=== PATIENT | female | born 1975 | race Caucasian/White ===

== ENCOUNTER → 2016-05-18 | Outpatient (CLI) | payer BC ==
--- NOTE | 2016-05-20 09:45 | MM ---
Reason for exam: screening (asymptomatic). Last mammogram was performed 4 years and 7 months ago. History: Family history of breast cancer in mother at age 60. Physical Findings: A clinical breast exam by your physician is recommended on an annual basis and results should be correlated with mammographic findings. MG Screening Mammo w CAD Bilateral CC and MLO view(s) were taken. Prior study comparison: October 01, 2011, bilateral digital screening mammo w/CAD. The breast tissue is heterogeneously dense. This may lower the sensitivity of mammography. Partially obscured nodular density upper outer right breast. ASSESSMENT: Incomplete: need additional imaging evaluation, BI-RAD 0 RECOMMENDATION: Special view mammogram and ultrasound of the right breast. [facility] will attempt to contact patient to return for supplemental views and ultrasound.
== END | disposition home or self-care (01) ==
LOC: RADMAMWWP 11:23
PROVIDERS: ATTEND Obstetrics & Gynecology
DX: Z12.31 Encounter for screening mammogram for malignant neoplasm of breast (principal)

== ENCOUNTER → 2016-05-29 | Outpatient (CLI) | payer BC ==
--- NOTE | 2016-05-29 13:02 | MM ---
Reason for exam: additional evaluation requested from abnormal screening. Last mammogram was performed less than 1 month ago. History: Family history of breast cancer in mother at age 60. Physical Findings: Nurse Summary: 1cm nodule in the right breast at 11 o'clock (nurse kp). MG Work Up Mamm w CAD RT ML, spot compression CC, and spot compression MLO view(s) were taken of the right breast. Prior study comparison: May 18, 2016, bilateral MG screening mammo w CAD. October 01, 2011, bilateral digital screening mammo w/CAD. The breast tissue is heterogeneously dense. This may lower the sensitivity of mammography. Asymmetric breast tissue in the right breast does not completely go away. ASSESSMENT: Incomplete: need additional imaging evaluation, BI-RAD 0 RECOMMENDATION: Ultrasound of the right breast.
--- NOTE | 2016-05-29 13:04 | USB ---
Reason for exam: additional evaluation requested from abnormal screening. History: Family history of breast cancer in mother at age 60. US Breast Workup Limited RT Left breast ultrasound demonstrates a 0.5 x 0.6 x 0.5cm irregular, solid lesion at 11 o'clock. These results were verbally communicated with the patient and result sheet given to the patient on 05/29/16. ASSESSMENT: Suspicious, BI-RAD 4 RECOMMENDATION: Ultrasound core biopsy of the right breast. Called Dr. Krishnan with mammographic findings and has scheduled an appointment for the patient for 06/04/16 at 2:[address] Carrillo. Biopsy scheduled for 05/31/16 at 11:30. PRELIMINARY REPORT CALLED AND FAXED TO DR. CARRILLO ON 05/29/16 AT 300/TP.
== END | disposition home or self-care (01) ==
LOC: RADMAMWWP 07:26
PROVIDERS: ATTEND Obstetrics & Gynecology
DX: R92.8 Other abnormal and inconclusive findings on diagnostic imaging of breast (principal)
CPT/HCPCS: 76642; G0206

== ENCOUNTER → 2016-05-31 | Day surgery (SDC) | payer BC ==
[~2016-05-31] MED LIST: ALPRAZolam 0.25 MG TAB ONE; BACITRACIN OINT 1 EACH PACKET TOPICAL ONE; LIDOCAINE 1% INJ 10MG/ML (20 ML MDV) ONE; LIDOCAINE 1%-EPI 1:100,000 20 ML VIAL ONE; SODIUM BICARB 4% 5 ML VIAL (0.48 MEQ/ML) ONE
--- NOTE | 2016-05-31 12:50 | USB ---
EXAMINATION TYPE: US biopsy breast VAD RT, MG diagnostic mammo RT wo CAD DATE OF EXAM: 05/31/2016 11:58 AM CLINICAL HISTORY: R92.8 ABN MAMMO and ultrasound. TECHNIQUE: Ultrasound guided core biopsy of right breast with clip placement and follow-up two-view mammogram. COMPARISON: Right breast mammogram and ultrasound May 29, 2016 and older exams. FINDINGS: The procedure of ultrasound guided core biopsy was explained to the patient. Benefits, alternatives, and risks were discussed. An informed consent was then obtained. The patient was placed in supine positioning for imaging and for the procedure. Preprocedure imaging redemonstrates vague fairly isoechoic lobulated area 11:00 position in the right breast without distinct shadowing on current study slightly less prominent or suspicious during real-time scanning. The overlying skin was prepped and draped in usual sterile fashion. Lidocaine buffered with bicarbonate was used as anesthetic into the skin and subcutaneous tissue. Lidocaine with epinephrine is used as anesthetic into the deeper tissue up to area of concern in the right breast. Under ultrasound guidance, a 13-gauge vacuum assisted biopsy gun device was used to obtain 4 core samples. Following this, a biopsy clip was left in lesion. The patient tolerated the procedure well without any immediate complication. The patient was kept in the radiology department for short stay after the procedure and then discharged home in stable condition. Postprocedure mammogram shows successful deployment of clip. No suspicious mammogram lesion is clearly identified. IMPRESSION: Successful, uncomplicated ultrasound guided core biopsy of area of concern in the right breast, full pathology results to follow. Low to intermediate index of suspicion noted at time of procedure. Pathology Results: Benign BREAST, RIGHT, CORE BIOPSY: BENIGN FIBROADIPOSE TISSUE. SEE NOTE. Recommendation Follow up ultrasound of the right breast in 2-3 months. [facility]
== END | disposition home or self-care (01) ==
LOC: RADUSWWP 10:17
PROVIDERS: ATTEND Surgery
DX: R92.8 Other abnormal and inconclusive findings on diagnostic imaging of breast (principal); Z88.2 Allergy status to sulfonamides; Z88.0 Allergy status to penicillin; Z88.1 Allergy status to other antibiotic agents
CPT/HCPCS: 88305; 19083; G0206; A4648; J2001

== ENCOUNTER → 2016-08-02 | Outpatient (CLI) | payer BC ==
--- NOTE | 2016-08-02 09:26 | USB ---
Reason for exam: clinical finding. History: Family history of breast cancer in mother at age 60. Benign US biopsy breast VAD RT of the right breast, May 31, 2016. Indicated problem(s): palpable abnormality in the right breast. Physical Findings: Nurse did not find any significant physical abnormalities on exam. US Breast RT Right breast ultrasound includes all four quadrants, the retroareolar region and axilla. Finding demonstrates a 0.6 x 0.6 x 0.3cm solid, hypoechoic lesion at 11 o'clock versus 6 x 5 x 5mm previously. The lesion persists and has not significantly changed. These results were verbally communicated with the patient and result sheet given to the patient on 08/02/16. ASSESSMENT: Suspicious, BI-RAD 4 RECOMMENDATION: Surgical consultation of the right breast. Decision can be made to rebiopsy under ultrasound guidance versus proceed to ultrasound wire localization and excision. Called with ultrasound findings and has scheduled an appointment for the patient for 08/13/16 at 3:[address] Carrillo. PRELIMINARY REPORT CALLED AND FAXED TO DR. CARRILLO ON 08/02/16 AT 300/TP.
== END | disposition home or self-care (01) ==
LOC: RADUSWWP 06:59
PROVIDERS: ATTEND Surgery
DX: R92.8 Other abnormal and inconclusive findings on diagnostic imaging of breast (principal)

== ENCOUNTER → 2016-08-22 | Day surgery (SDC) | payer BC ==
[~2016-08-22] MED LIST changes: -ALPRAZolam 0.25 MG TAB ONE; -BACITRACIN OINT 1 EACH PACKET TOPICAL ONE; -LIDOCAINE 1%-EPI 1:100,000 20 ML VIAL ONE; -SODIUM BICARB 4% 5 ML VIAL (0.48 MEQ/ML) ONE
--- NOTE | 2016-08-22 14:21 | USB ---
Discontinued ultrasound guided core biopsy of the right breast HISTORY: Abnormal breast ultrasound Real-time ultrasound performed. Following discussion with the patient about alternatives, she has ethan cted to abort the ultrasound-guided core biopsy of this time. She decides to discuss case with Dr. Alec means prior to biopsy. Biopsy is aborted per patient request
== END ==
LOC: RADUSWWP 11:38
PROVIDERS: ATTEND Surgery
DX: R92.8 Other abnormal and inconclusive findings on diagnostic imaging of breast (principal)
CPT/HCPCS: 76641; J2001

== ENCOUNTER → 2016-09-30 | Day surgery (SDC) | payer BC ==
[2016-09-30 07:39] VITALS: PULSE 77; RESP 16; BMI 26.6
[2016-09-30 08:33] VITALS: BP 113/76; TEMP 98.5
--- NOTE | 2016-09-30 09:02 | USB ---
EXAMINATION TYPE: US biopsy breast VAD RT, MG diagnostic mammo RT wo CAD DATE OF EXAM: 09/30/2016 CLINICAL HISTORY: R92.8 ABN MAMMO. Abnormal ultrasound. TECHNIQUE: Ultrasound guided core biopsy of right breast with clip placement and follow-up two-view mammogram. COMPARISON: Prior right breast ultrasound exams from August 22, 2016 through May 29, 2016 FINDINGS: The procedure of ultrasound guided core biopsy was explained to the patient. Benefits, alternatives, and risks were discussed. An informed consent was then obtained. The patient was placed in supine positioning for imaging and for the procedure. Preprocedure imaging redemonstrates round isoechoic 7 mm area at 11: 00 position right breast. The overlying skin was prepped and draped in usual sterile fashion. Lidocaine was used as anesthetic into the skin and subcutaneous tissue up to area of concern in the right breast. Under ultrasound guidance, a 12-gauge vacuum assisted biopsy gun device was used to obtain 3 core samples. Following this, a biopsy clip was left in lesion. The patient tolerated the procedure well without any immediate complication. The patient was kept in the radiology department for short stay after the procedure and then discharged home in stable condition. Postprocedure mammogram shows successful deployment of clip. Clip is approximately 3 cm lateral to first clip further from 12:00 position and site of prior clip likely closer to the targeted 10- 11:00 position. I would using medial to lateral approach and perhaps what I thought was tip was actually distal part of clip insertion device and tip was farther lateral accounting for slight displacement of clips. IMPRESSION: Successful, uncomplicated ultrasound guided core biopsy of area of concern in the right breast, full pathology results to follow. Low index of suspicion noted at time of procedure. Still favor benign lobule as area of concern is isoechoic to surrounding tissue. Pathology Results: Benign BREAST, RIGHT SITE A AT 11:00, BIOPSY: MATURE BENIGN VASCULARIZED FIBROADIPOSE TISSUE; BREAST ELEMENTS ARE NOT IDENTIFIED. RECOMMEND CLINICAL AND IMAGING CORRELATION AND FOLLOW UP INDICATED. Recommendation Follow up mammogram and ultrasound of the right breast in 6 months. [facility]
== END ==
LOC: RADUSWWP 07:18
PROVIDERS: ATTEND Surgery
DX: R92.8 Other abnormal and inconclusive findings on diagnostic imaging of breast (principal); Z88.0 Allergy status to penicillin; Z88.2 Allergy status to sulfonamides
CPT/HCPCS: 88305; 19083; G0206; A4648; J2001

== ENCOUNTER → 2017-04-08 | Outpatient (CLI) | payer BC ==
--- NOTE | 2017-04-08 09:37 | USB ---
Reason for exam: follow-up at short interval from prior study. History: Family history of breast cancer in mother at age 60. Benign US biopsy breast VAD RT of the right breast, September 30, 2016. US discontinued breast core RT of the right breast, August 22, 2016. Benign US biopsy breast VAD RT of the right breast, May 31, 2016. Physical Findings: Nurse did not find any significant physical abnormalities on exam. US Breast RT Right breast ultrasound includes all four quadrants, the retroareolar region and axilla. Finding demonstrates this measures 7 x 3mm and is unchanged. 6 month follow up can demonstrate further stability. These results were verbally communicated with the patient and result sheet given to the patient on 04/08/17. ASSESSMENT: Probably benign, BI-RAD 3 RECOMMENDATION: Follow-up diagnostic mammogram of both breasts in 6 months. Back on schedule. Ultrasound of the right breast in 6 months.
== END | disposition home or self-care (01) ==
LOC: RADUSWWP 08:01
PROVIDERS: ATTEND Surgery
DX: R92.8 Other abnormal and inconclusive findings on diagnostic imaging of breast (principal)

== ENCOUNTER → 2017-12-26 | Outpatient (CLI) | payer BC ==
--- NOTE | 2017-12-26 11:27 | MM ---
Reason for exam: additional evaluation requested from prior study. Last mammogram was performed 1 year and 3 months ago. History: Family history of breast cancer in mother at age 60. Benign US biopsy breast VAD RT of the right breast, September 30, 2016. US discontinued breast core RT of the right breast, August 22, 2016. Benign US biopsy breast VAD RT of the right breast, May 31, 2016. Physical Findings: Nurse did not find any significant physical abnormalities on exam. MG Diagnostic Mammo w CAD [place] Bilateral CC and MLO view(s) were taken. Prior study comparison: September 30, 2016, right breast MG diagnostic mammo RT wo CAD. May 31, 2016, right breast MG diagnostic mammo RT wo CAD. The breast tissue is heterogeneously dense. This may lower the sensitivity of mammography. Previous mammotome biopsy in the right breast. No significant new findings when compared with previous films. These results were verbally communicated with the patient and result sheet given to the patient on 12/26/17. ASSESSMENT: Benign, BI-RAD 2 RECOMMENDATION: Routine screening mammogram of both breasts in 1 year.
--- NOTE | 2017-12-26 11:28 | USB ---
Reason for exam: follow-up at short interval from prior study. History: Family history of breast cancer in mother at age 60. Benign US biopsy breast VAD RT of the right breast, September 30, 2016. US discontinued breast core RT of the right breast, August 22, 2016. Benign US biopsy breast VAD RT of the right breast, May 31, 2016. US Breast RT Right complete breast ultrasound includes all four quadrants, the retroareolar region and axilla. Finding demonstrates no cystic or solid lesion seen. These results were verbally communicated with the patient and result sheet given to the patient on 12/26/17. ASSESSMENT: Benign, BI-RAD 2 RECOMMENDATION: Routine screening mammogram of both breasts in 1 year.
== END ==
LOC: RADMAMWWP 06:57
PROVIDERS: ATTEND Obstetrics & Gynecology
DX: R92.8 Other abnormal and inconclusive findings on diagnostic imaging of breast (principal)
CPT/HCPCS: 77066

== ENCOUNTER → 2019-04-05 | Outpatient (CLI) | payer BC ==
--- NOTE | 2019-04-09 09:50 | MM ---
Reason for exam: screening (asymptomatic). Last mammogram was performed 1 year and 3 months ago. History: Family history of breast cancer in mother at age 60. Benign US biopsy breast VAD RT of the right breast, September 30, 2016. US discontinued breast core RT of the right breast, August 22, 2016. Benign US biopsy breast VAD RT of the right breast, May 31, 2016. Physical Findings: A clinical breast exam by your physician is recommended on an annual basis and results should be correlated with mammographic findings. MG Screening Mammo w CAD Bilateral CC and MLO view(s) were taken. Prior study comparison: December 26, 2017, bilateral MG diagnostic mammo w CAD [place]. September 30, 2016, right breast MG diagnostic mammo RT wo CAD. The breast tissue is heterogeneously dense. This may lower the sensitivity of mammography. Previous mammotome biopsy in the right breast x 2. No significant changes when compared with prior studies. ASSESSMENT: Benign, BI-RAD 2 RECOMMENDATION: Routine screening mammogram of both breasts in 1 year.
== END | disposition home or self-care (01) ==
LOC: RADMAMWWP 06:48
PROVIDERS: ATTEND Obstetrics & Gynecology
DX: Z12.31 Encounter for screening mammogram for malignant neoplasm of breast (principal)
CPT/HCPCS: 77067

== ENCOUNTER → 2020-08-09 | Outpatient (CLI) | payer BC ==
--- NOTE | 2020-08-10 13:22 | MM ---
Reason for exam: screening (asymptomatic). Last mammogram was performed 1 year and 4 months ago. History: Family history of breast cancer in mother at age 60. Benign US biopsy breast VAD RT of the right breast, September 30, 2016. US discontinued breast core RT of the right breast, August 22, 2016. Benign US biopsy breast VAD RT of the right breast, May 31, 2016. Physical Findings: A clinical breast exam by your physician is recommended on an annual basis and results should be correlated with mammographic findings. MG Screening Mammo w CAD Bilateral CC and MLO view(s) were taken. Prior study comparison: April 05, 2019, bilateral MG screening mammo w CAD. December 26, 2017, bilateral MG diagnostic mammo w CAD [place]. The breast tissue is heterogeneously dense. This may lower the sensitivity of mammography. Previous mammotome biopsy in the right breast x 2. There is no discrete abnormality. ASSESSMENT: Benign, BI-RAD 2 RECOMMENDATION: Routine screening mammogram of both breasts in 1 year.
== END | disposition home or self-care (01) ==
LOC: RADMAMWWP 06:59
PROVIDERS: ATTEND Obstetrics & Gynecology
DX: Z12.31 Encounter for screening mammogram for malignant neoplasm of breast (principal)
CPT/HCPCS: 77067

== ENCOUNTER → 2021-12-07 | Outpatient (CLI) | payer BC ==
--- NOTE | 2021-12-10 08:43 | MM ---
Reason for Exam: Screening (asymptomatic). Last mammogram was performed 1 year(s) and 4 month(s) ago. Patient History: Menarche at age 14. First Full-Term at age 29. 09/30/2016, Benign Core Biopsy on the right side. 05/31/2016, Benign Core Biopsy on the right side. 08/22/2016, US discontinued breast core RT on the right side. Mother had breast cancer, age 60. Last menstrual period: 12/07/2021 Risk Values: Nevaeh 5 year model risk: 4.3%. NCI Lifetime model risk: 27.1%. Prior Study Comparison: 12/26/2017 Bilateral Diagnostic Mammogram, [facility]. 04/05/2019 Bilateral Screening Mammogram, [facility]. 08/09/2020 Bilateral Screening Mammogram, [facility]. Tissue Density: The breast tissue is heterogeneously dense. This may lower the sensitivity of mammography. Findings: Analyzed By CAD. There is no suspicious group of microcalcifications or new suspicious mass in either breast. Overall Assessment: Benign, BI-RAD 2 Management: Screening Mammogram of both breasts in 1 year. A clinical breast exam by your physician is recommended on an annual basis and results should be correlated with mammographic findings. Electronically signed and approved by: Aditya Abbott M.D. Radiologis
== END | disposition home or self-care (01) ==
LOC: RADMAMWWP 16:13
PROVIDERS: ATTEND Obstetrics & Gynecology
DX: Z12.31 Encounter for screening mammogram for malignant neoplasm of breast (principal); Z80.3 Family history of malignant neoplasm of breast
CPT/HCPCS: 77067

== ENCOUNTER → 2023-04-11 | Outpatient (CLI) | payer BC ==
--- NOTE | 2023-04-14 13:25 | MM ---
Reason for Exam: Screening (asymptomatic). Last mammogram was performed 1 year(s) and 4 month(s) ago. Patient History: Menarche at age 14. First Full-Term at age 29. 09/30/2016, Benign Core Biopsy on the right side. 05/31/2016, Benign Core Biopsy on the right side. 08/22/2016, US discontinued breast core RT on the right side. Mother had breast cancer, age 60. Last menstrual period: 03/26/2023 Risk Values: Nevaeh 5 year model risk: 4.0%. NCI Lifetime model risk: 26.5%. Prior Study Comparison: 04/05/2019 Bilateral Screening Mammogram, [facility]. 08/09/2020 Bilateral Screening Mammogram, [facility]. 12/07/2021 Bilateral MG screening mammo w CAD, [facility]. Tissue Density: There are scattered fibroglandular densities. Findings: Analyzed By CAD. 2 microclips in the right breast from prior biopsies. There is asymmetric density outer aspect of the left breast annual depth on the CC view which appears more defined. This may represent superimposition shadow but further evaluation is recommended. Otherwise, no significant change. Overall Assessment: Incomplete: need additional imaging evaluation, BI-RAD 0 Management: Special View Mammogram of the left breast. Diagnostic Breast Ultrasound of the left breast. Additional views to include spot 3-D CC, 3-D CC rolled medial, spot 3-D MLO, and 3-D ML views. Targeted left breast ultrasound of any persisting abnormality. [facility] will attempt to contact patient to return for supplemental views and ultrasound if indicated. Electronically signed and approved by: Ben Purcell M.D. Radiologist
== END | disposition home or self-care (01) ==
LOC: RADMAMWWP 15:03
PROVIDERS: ATTEND Obstetrics & Gynecology
DX: Z12.31 Encounter for screening mammogram for malignant neoplasm of breast (principal); Z80.3 Family history of malignant neoplasm of breast
CPT/HCPCS: 77067

== ENCOUNTER → 2023-04-23 | Outpatient (CLI) | payer BC ==
--- NOTE | 2023-04-23 10:27 | MM ---
Reason for Exam: Additional evaluation requested from abnormal screening. Last screening mammogram was performed less than 1 month ago. Patient History: Menarche at age 14. First Full-Term at age 29. 09/30/2016, Benign Core Biopsy on the right side. 05/31/2016, Benign Core Biopsy on the right side. 08/22/2016, US discontinued breast core RT on the right side. Mother had breast cancer, age 60. Risk Values: Nevaeh 5 year model risk: 3.7%. NCI Lifetime model risk: 25.9%. Prior Study Comparison: 08/09/2020 Bilateral Screening Mammogram, [facility]. 12/07/2021 Bilateral MG screening mammo w CAD, [facility]. 04/11/2023 Bilateral MG screening mammo w CAD, [facility]. Tissue Density: Left: There are scattered fibroglandular densities. Findings: Analyzed By CAD. Under compression no persistent suspicious nodularity is identified. No suspicious underlying spiculated or lobular masses evident. No distortion is evident. Overall Assessment: Probably benign, BI-RAD 3 Management: Diagnostic Mammogram of the left breast in 6 months. A negative mammogram report should not preclude additional follow up of suspicious palpable abnormalities. Patient should continue monthly self breast exam. A clinical breast exam by your physician is recommended on an annual basis and results should be correlated with mammographic findings. Electronically signed and approved by: Oren Clement D.O. Radiologis
== END | disposition home or self-care (01) ==
LOC: RADMAMWWP 09:52
PROVIDERS: ATTEND Obstetrics & Gynecology
DX: R92.322 Mammographic fibroglandular density, left breast (principal); Z80.3 Family history of malignant neoplasm of breast
CPT/HCPCS: 77061; 77065

== ENCOUNTER → 2024-09-29 | Outpatient (CLI) | payer BC ==
--- NOTE | 2024-09-29 07:29 | MM ---
Reason for Exam: Screening (asymptomatic). Last mammogram was performed 1 year(s) and 6 month(s) ago. Patient History: Menarche at age 14. First Full-Term at age 29. Premenopausal. 09/30/2016, Benign Core Biopsy on the right side. 05/31/2016, Benign Core Biopsy on the right side. 08/22/2016, US discontinued breast core RT on the right side. Mother had breast cancer, age 60. Last menstrual period: 09/12/2024 Risk Values: Wilian 5 year model risk: 3.4%. NCI Lifetime model risk: 25.3%. Prior Study Comparison: 12/07/2021 Bilateral MG screening mammo w CAD, [facility]. 04/11/2023 Bilateral MG screening mammo w CAD, [facility]. 04/23/2023 Left MG 3D work up w/cad LT, [facility]. Tissue Density: There are scattered areas of fibroglandular density. Findings: Analyzed By CAD. Bilateral areas of asymmetric density remain unchanged. 2 microclips within the right breast from prior biopsies. There is no suspicious group of microcalcifications or new suspicious mass in either breast. Overall Assessment: Benign, BI-RAD 2 Management: Screening Mammogram of both breasts in 1 year. SEE NOTE BELOW IN REGARDS TO THE PATIENT'S INCREASED 5 YEAR WILIAN SCORE AND INCREASED LIFETIME RISK SCORE. Patient should continue monthly self-breast exams. A clinical breast exam by your physician is recommended on an annual basis. This exam should not preclude additional follow-up of suspicious palpable abnormalities. Note on Wilian scores and lifetime risk: 1. A Wilian score greater than 3% is considered moderate risk. If this is the case, consider specialist referral to assess eligibility for a risk reducing agent. 2. If overall lifetime risk for the development of breast cancer is 20% or higher, the patient may qualify for future screening with alternating mammogram and breast MRI. [facility], , 09/29/2024 7:25 AM. Electronically signed and approved by: Ben Purcell M.D. Radiologist
== END | disposition home or self-care (01) ==
LOC: RADMAMWWP 06:49
PROVIDERS: ATTEND Obstetrics & Gynecology
DX: Z12.31 Encounter for screening mammogram for malignant neoplasm of breast (principal); R92.323 Mammographic fibroglandular density, bilateral breasts; Z80.3 Family history of malignant neoplasm of breast
CPT/HCPCS: 77067